=== PATIENT | female | born 1950 | race Caucasian/White ===

== ENCOUNTER 2016-12-12 10:17 | Inpatient (IN) ==
--- NOTE | 2016-12-12 10:37 | Emergency Department Note ---
Disposition Clinical Impression: Congestive heart failure (CHF) Qualifiers: Congestive heart failure type: diastolic Congestive heart failure chronicity: acute on chronic Qualified Code(s): I50.33 - Acute on chronic diastolic ( congestive) heart failure Disposition: Admitted As Inpatient Condition: Good Time of Disposition: 15:44 General Adult HPI - General Chief complaint: ED Shortness of Breath/Dyspnea Stated complaint: HALI, LE swelling Time Seen by Provider: 12/12/16 10:29 Source: patient Mode of arrival: ambulatory Limitations: no limitations Nursing Notes Reviewed: Yes Vital Signs Reviewed: Yes - History of Present Illness HPI Narrative: 66 yo F with PMH CHF, Afib, asthma, htn, hld. with c/o worsening dyspnea. Pt states she has had worsenign dyspnea for past three weeks. Pt states it has been progressively getting worse and is now short of breath with rest and conversation. Pt states that she is now having b/l lower leg swelling which started about one week ago. She sees [facility] and has been using her inhalers as prescribed but has not been improving her symptoms. She states she also follow with cardiology and her PCP for her a fib and CHF, SHe states that about 1-2 weeks ago she was taken off her amlodipine and her metoprolol was increased. Change in medication did not improve her symptoms. SHe states she also does have occasional wheeze. SHe denies cough, hemoptysis, chest pain, syncope, numbness/tingling. Pt Subjective Complaint: SOB Onset (ago): week(s) Location: chest Radiation: non-radiation Pain Scale: 0 Consistency: constant Improves with: nothing Worsens with: movement Associated symptoms: Reports: shortness of breath Treatments Prior to Arrival: other - Related Data Home Medications Medication Instructions Recorded Confirmed Cyanocobalamin (Vitamin B-12) 1,000 mcg PO DAILY 05/31/15 12/12/16 [Vitamin B12] FLUoxetine HCl [Sarafem] 20 mg PO DAILY 05/31/15 12/12/16 Lisinopril/Hydrochlorothiazide 1 tab PO BID 05/31/15 12/12/16 [Zestoretic 20-12.5 mg Tablet] Metoprolol [Lopressor] 100 mg PO BID 05/31/15 12/12/16 Pravastatin Sodium 10 mg PO DAILY 05/31/15 12/12/16 Vitamin D3/Folic Acid [Ortho D 5,000 units PO DAILY 05/31/15 12/12/16 3,775 Unit-1 mg Cap] Albuterol Sulfate [Proair Hfa] 1 puff IH Q4H PRN 10/25/16 12/12/16 Aspirin [Lo-Dose Aspirin EC] 81 mg PO DAILY 10/25/16 12/12/16 Apixaban [Eliquis] 5 mg PO BID 12/12/16 12/12/16 Budesonide/Formoterol 160/4.5 2 puff IH BIDR 12/12/16 12/12/16 [Symbicort 160/4.5] Multivit-Min/Iron/Folic/Lutein 1 tab PO DAILY 12/12/16 12/12/16 [Centrum Silver Women Tablet] [place]-3/Dha/Epa/Fish Oil [Fish Oil 1,000 mg PO DAILY 12/12/16 12/12/16 1,000 mg Softgel] Polyethylene Glycol 3350 17 gm PO DAILY 12/12/16 12/12/16 [Smoothlax] Previous Rx's Medication Instructions Recorded Furosemide [Lasix] 40 mg PO BIDDIURETIC #20 tablet 12/14/16 Potassium Chloride 20 meq PO BIDWM #60 tab.er.prt 12/14/16 Allergies Allergy/AdvReac Type Severity Reaction Status Date / Time doxycycline Allergy Swelling Verified 12/12/16 12:52 of Lip/Tongue/Throat Penicillins Allergy Swelling Verified 12/12/16 12:53 of Lip/Tongue/Throat Sulfa (Sulfonamide Allergy Rash Verified 05/31/15 18:13 Antibiotics) nitrofurantoin AdvReac Itching Verified 12/12/16 12:52 [From Macrobid] Telemetry leads Allergy Itching Uncoded 12/14/16 04:59 All systems ED: reviewed and negative except as stated. Constitutional: Denies: fever, chills, weakness, weight change Eyes: Denies: eye pain, eye discharge, vision change ENT ED: Denies: ear pain, throat pain, dental pain, hearing loss, epistaxis, congestion, dysphagia Cardiovascular: Reports: dyspnea on exertion, edema. Denies: chest pain, palpitations, syncope Respiratory: Reports: dyspnea. Denies: cough, wheezes, hemoptysis, stridor, sputum production Gastrointestinal: Denies: abdominal pain, nausea, vomiting, diarrhea, constipation, hematemesis, melena, hematochezia Genitourinary: Denies: dysuria, frequency, hematuria, discharge Musculoskeletal: Denies: back pain, neck pain, arthralgia, myalgia Integumentary: Denies: rash, abrasion, lesions Neurological: Denies: headache, weakness, numbness, paresthesias, confusion, abnormal gait, vertigo Psychiatric: Denies: anxiety, depression, suicidal thoughts, homicidal thoughts , auditory hallucinations, visual hallucinations Endocrine: Denies: fatigue Hematological/Lymphatic: Denies: easy bleeding, easy bruising Allergic/Immunologic: Denies: facial swelling, urticaria Past Medical History - Past Medical History Attestation: Yes The following information was validated with the patient. Medical history: Reports: asthma, atrial fibrillation, CHF, hyperlipidemia, hypertension Psychiatric history: Reports: no psych history - Social History Smoking Status: Never smoker Smokeless Tobacco Status: No Alcohol use: Reports: none Drug use: Reports: none Physical Exam - General Limitations: no limitations General appearance: alert, in no apparent distress - Head Head exam: atraumatic, normocephalic, normal inspection - Eye Eye exam: Present: normal appearance, PERRL, EOMI - ENT ENT exam: normal exam, normal oropharynx, mucous membranes moist - Neck Neck exam: Present: normal inspection, full ROM, trachea midline - Chest Chest inspection: Present: normal inspection, symmetric chest wall rise. Absent : tenderness - Respiratory Respiratory exam: Present: accessory muscle use (minimal), prolonged expiratory phase, other (conversational dyspnea). Absent: wheezes - Expanded Respiratory Exam Location: rales: Left, Right (mild crackles bibasilar R>L), decreased breath sounds: Left, Right, Upper, Lower (diminished throughout) - Cardiovascular Cardiovascular exam: Present: irregular rhythm - Abdominal Exam Abdominal exam: Present: soft, Non-Tender. Absent: tenderness, distention, guarding, rebound, rigidity - Rectal Exam Rectal exam: Present: deferred - Extremities Exam Extremities exam: Present: normal capillary refill, pedal edema (b/l nonpitting edema). Absent: tenderness, calf tenderness - Back Exam Back exam: Present: normal inspection, full ROM. Absent: tenderness - Neurological Exam Neurological exam: Present: alert, oriented X3, CN II-XII intact - Psychiatric Psychiatric exam: Present: normal affect, normal mood - Skin Skin exam: Present: warm, dry, intact, normal color Course Course Narrative: Pt with dyspnea at rest etiology cardiac vs pulmonic iCXR with R pleural effusion 40 of lasix will likely need admission for CHF exacerbation Vital Signs Temperature 97.9 F 12/12/16 10:22 Pulse Rate 73 12/12/16 10:22 Respiratory Rate 18 12/12/16 10:22 Blood Pressure 157/111 12/12/16 10:22 O2 Sat by Pulse Oximetry 95 12/12/16 10:22 Temperature 98.0 F 12/14/16 11:16 Pulse Rate 82 12/14/16 11:16 Respiratory Rate 16 12/14/16 11:16 Blood Pressure 134/85 12/14/16 11:16 O2 Sat by Pulse Oximetry 96 12/14/16 12:15 Oxygen Delivery Oxygen Delivery Room Air Medical Decision Making - Medical Records Medical records reviewed: Yes I reviewed the patient's medical records. - Lab Data Lab results reviewed: Yes I reviewed the patient's lab results. Result diagrams: 12/14/16 04:23 12/14/16 04:23 Lab Results 12/12/16 12/12/16 12/12/16 Range/Units 10:50 10:50 10:50 WBC 8.1 (4.3-11.1) K/mcL RBC 4.93 (3.82-4.97) M/mcL Hgb 14.2 (11.5-15.4) g/dL Hct 43.5 (35.3-44.9) % MCV 88.2 (83.0-100.0) fL MCH 28.8 (28.0-33.3) pg MCHC 32.6 (31.6-35.5) g/dL RDW 17.1 H (11.5-14.5) % Plt Count 175 (140-400) K/mcL MPV 11.9 (9.4-12.4) fL Immature Gran % 0.2 (0-4) % Seg Neutrophils % 73.7 % Lymphocytes % 14.1 % Monocytes % 7.2 % Eosinophils % 3.8 % Basophils % 1.0 % Neutrophils # 6.0 (1.6-8.9) K/mcL Lymphocytes # 1.2 (0.6-4.6) K/mcL Monocytes # 0.6 (0.0-1.3) K/mcL Eosinophils # 0.3 (0.0-0.6) K/mcL Basophils # 0.1 (0.0-0.2) K/mcL Sodium 141 (136-145) mEq/L Potassium 2.9 L (3.5-4.5) mEq/L Chloride 105 (98-109) mEq/L Carbon Dioxide 25 (19-29) mEq/L BUN 15 (7-20) mg/dL Creatinine 0.87 (0.57-1.11) mg/dL Est GFR ( Amer) > 60 (> 60) Est GFR (Non-Af Amer) > 60 (> 60) BUN/Creatinine Ratio 17 (6-26) Glucose 94 (70-99) mg/dL Calculated Osmolality 293 (280-300) Calcium 9.7 (8.6-10.8) mg/dL Total Bilirubin 2.7 H (0.2-1.2) mg/dL AST 35 H (5-34) Units/L ALT 23 (0-55) Units/L Alkaline Phosphatase 88 (38-126) Units/L Troponin I 0.01 (0-0.03) ng/mL B-Natriuretic Peptide (0-100) pg/mL Serum Total Protein 7.3 (6.0-8.3) g/dL Albumin 4.1 (3.5-5.0) g/dL Globulin 3.2 (2.4-3.5) g/dL Albumin/Globulin Ratio 1.3 (1.1-2.2) 12/12/16 12/12/16 Range/Units 10:50 12:23 WBC (4.3-11.1) K/mcL RBC (3.82-4.97) M/mcL Hgb (11.5-15.4) g/dL Hct (35.3-44.9) % MCV (83.0-100.0) fL MCH (28.0-33.3) pg MCHC (31.6-35.5) g/dL RDW (11.5-14.5) % Plt Count (140-400) K/mcL MPV (9.4-12.4) fL Immature Gran % (0-4) % Seg Neutrophils % % Lymphocytes % % Monocytes % % Eosinophils % % Basophils % % Neutrophils # (1.6-8.9) K/mcL Lymphocytes # (0.6-4.6) K/mcL Monocytes # (0.0-1.3) K/mcL Eosinophils # (0.0-0.6) K/mcL Basophils # (0.0-0.2) K/mcL Sodium (136-145) mEq/L Potassium (3.5-4.5) mEq/L Chloride (98-109) mEq/L Carbon Dioxide (19-29) mEq/L BUN (7-20) mg/dL Creatinine (0.57-1.11) mg/dL Est GFR ( Amer) (> 60) Est GFR (Non-Af Amer) (> 60) BUN/Creatinine Ratio (6-26) Glucose (70-99) mg/dL Calculated Osmolality (280-300) Calcium (8.6-10.8) mg/dL Total Bilirubin (0.2-1.2) mg/dL AST (5-34) Units/L ALT (0-55) Units/L Alkaline Phosphatase (38-126) Units/L Troponin I 0.01 (0-0.03) ng/mL B-Natriuretic Peptide 766 H (0-100) pg/mL Serum Total Protein (6.0-8.3) g/dL Albumin (3.5-5.0) g/dL Globulin (2.4-3.5) g/dL Albumin/Globulin Ratio (1.1-2.2) - Radiology Data Radiology results reviewed: Yes I reviewed the patient's radiology results. - EKG Data EKG #1 EKG attestation: Yes I reviewed and interpreted this EKG. Rhythm: A.Fib When compared to previous EKG there are: no significant changes Interpretation: no acute changes (from 10/25) - Core Measures AMI Core Measures Followed: Yes
[2016-12-12] MEDS ORDERED: Furosemide 40 MG/4 ML VIAL IVP ONE (11:08)
[2016-12-12 11:16] LABS: Basophils # 0.1 K/mcL (0.0-0.2); Eosinophils # 0.3 K/mcL (0.0-0.6); Eosinophils % 3.8 %; Hematocrit 43.5 % (35.3-44.9); Hemoglobin 14.2 g/dL (11.5-15.4); Immature Granulocytes % 0.2 % (0-4); Lymphocytes # 1.2 K/mcL (0.6-4.6); Lymphocytes % 14.1 %; Mean Corpuscular HGB Conc 32.6 g/dL (31.6-35.5); Mean Corpuscular Hemoglobin 28.8 pg (28.0-33.3); Mean Corpuscular Volume 88.2 fL (83.0-100.0); Mean Platelet Volume 11.9 fL (9.4-12.4); Monocytes # 0.6 K/mcL (0.0-1.3); Monocytes % 7.2 %; Platelet Count 175 K/mcL (140-400); Red Blood Count 4.93 M/mcL (3.82-4.97); Red Cell Distribution Width 17.1 % (11.5-14.5); Segmented Neutrophils % 73.7 %
[2016-12-12 11:28] LABS: Alanine Aminotransferase 23 Units/L (0-55); Albumin 4.1 g/dL (3.5-5.0); Albumin/Globulin Ratio 1.3 (1.1-2.2); Alkaline Phosphatase 88 Units/L (38-126); Aspartate Amino Transferase 35 Units/L (5-34); BUN/Creatinine Ratio 17 (6-26); Bilirubin,Total 2.7 mg/dL (0.2-1.2); Blood Urea Nitrogen 15 mg/dL (7-20); Calcium 9.7 mg/dL (8.6-10.8); Carbon Dioxide 25 mEq/L (19-29); Chloride 105 mEq/L (98-109); Globulin 3.2 g/dL (2.4-3.5); Glucose 94 mg/dL (70-99); Osmolality,Calculated 293 (280-300); Potassium 2.9 mEq/L (3.5-4.5); Sodium 141 mEq/L (136-145); Total Protein 7.3 g/dL (6.0-8.3); eGFR For African Americans > 60 (> 60); eGFR For Non-African Americans > 60 (> 60)
--- NOTE | 2016-12-12 11:49 | Internal Med History&Physical ---
Date of Encounter: 12/12/16 Time of Encounter: 11:49 Assessment and Plan (1) Congestive heart failure (CHF) Current visit: Yes Status: Acute Congestive heart failure: Clinically this is a congestive heart failure as patient has elevated JVP, presence of a third heart sound, pedal edema and unable to lay down flat along with right-sided pleural effusion. Noted that patient also gained more than 10 pounds and she does not have any control on a fluid restriction. Patient has echocardiogram done in less than 6 months which showed ejection fraction more than 50%. Plan Admit patient as an inpatient. Intravenous Lasix 40 mg twice a day. Replacement of potassium. Recheck labs in the morning. We will cycle the troponin. In the troponin is positive or patient's intermittent fibrillation gets worse then we will get a cardiology opinion tomorrow I have discussed this plan with the patient and patient's was present in the room at the bedside. They do not have any question at this point. Qualifiers: Congestive heart failure type: diastolic Congestive heart failure chronicity: unspecified congestive heart failure chronicity Qualified Code(s) : I50.30 - Unspecified diastolic (congestive) heart failure (2) Bronchial asthma Current visit: Yes Status: Acute Patient was evaluated by pulmonology. Pulmonology noted that patient has a worsening shortness of breath along with weight gain. Pulmonology send this patient to emergency room for further evaluation. We will resume home medications. I have discussed this case with the pulmonology and he agreed with the plan. Pulmonology was consulted regarding the underlying heart issue and prefer that to be investigated further. Qualifiers: Asthma severity: unspecified severity Asthma complication type: uncomplicated Qualified Code(s): J45.909 - Unspecified asthma, uncomplicated (3) Atrial fibrillation Current visit: Yes Status: Acute Patient is a chronic atrial fibrillation. Heart rate is 82-84. Anticoagulation: Elliquis Qualifiers: Atrial fibrillation type: chronic Qualified Code(s): I48.2 - Chronic atrial fibrillation (4) Obesity Current visit: Yes Status: Acute May need outpatient evaluation for bariatric surgery. Qualifiers: Obesity type: unspecified obesity type Obesity severity: unspecified obesity severity Qualified Code(s): E66.9 - Obesity, unspecified (5) DVT prophylaxis Current visit: Yes Status: Acute Elliquis Medical decision making: This patient has multiple risk factors for worsening of his cardiac perfusion. This patient has a [id number] risk of worsening heart failure in spite of being on appropriate treatment. Internal Medicine - H&P: HPI Chief complaint: sob Admitted From: Emergency Dept Plans for Post Hospital Care: Home History of present illness: PCP: Dr. Arpit Mckoy. Cardiology: Dr. Somers Brief past medical history: Hypertension, atrial fibrillation, bronchial asthma History of present illness: Patient has ongoing shortness of breath for more than 2 months. In last 1 week patient's shortness of breath was gradually worsened. Patient was previously evaluated by cardiology and it seems that as per patient, this shortness of breath is likely secondary to her lung problem. This morning patient was evaluated by pulmonology. Pulmonology evaluated this patient, noted that patient has a gain of more than 10 pounds. Patient was unable to lay down flat. Patient has a pedal edema. Patient was persistently short of breath and was able to speak complete sentences with the great difficulty. Patient denies chest pain, palpitation, dizziness, abdominal pain, nausea, vomiting or diarrhea. Patient was sent to the emergency room from the pulmonology office. Course in the emergency room: Patient was evaluated in the emergency room. Noted that patient's potassium was 2.9. Chest x-ray was suggestive of a right- sided pleural effusion. Patient was given intravenous Lasix. Reason for admission: This is likely an exacerbation of her underlying congestive heart failure. Noted that patient has an echocardiogram done 2 months back which is suggestive of ejection fraction more than 50%. Patient needs intravenous diuretics along with the monitoring of the electrolytes and that is the reason patient needs to be hospitalized for further evaluation which cannot be done at the home setting. Family history: Noncontributory Past Med Surg Social Fam HX - Past Medical History Medical history: asthma, atrial fibrillation, CHF, hyperlipidemia, hypertension Psychiatric history: no psych history - Social History Smoking Status: Never smoker Smokeless Tobacco Status: No Alcohol use: none Drug use: none Internal Medicine - H&P: Meds Amlodipine [Amlodipine Besylate] 10 mg PO DAILY 05/31/15 [History] Cyanocobalamin (Vitamin B-12) [Vitamin B-12] 1,000 mcg PO DAILY 05/31/15 [ History] FLUoxetine HCl [Sarafem] 20 mg PO DAILY 05/31/15 [History] Lisinopril/Hydrochlorothiazide [Zestoretic 20-12.5 mg Tablet] 1 tab PO BID 05/31 [History] Metoprolol [Lopressor] 100 mg PO BID 05/31/15 [History] Pravastatin Sodium 10 mg PO DAILY 05/31/15 [History] Vitamin D3/Folic Acid [Ortho D 3,775 Unit-1 mg Cap] 5,000 units PO DAILY [History] Albuterol Sulfate [Proair Hfa] 1 puff IH Q4H PRN 10/25/16 [History] Aspirin [Lo-Dose Aspirin EC] 81 mg PO DAILY 10/25/16 [History] Apixaban [Eliquis] 5 mg PO BID 12/12/16 [History] Budesonide/Formoterol 160/4.5 [Symbicort 160/4.5] 2 puff IH BIDR 12/12/16 [ History] Multivit-Min/Iron/Folic/Lutein [Centrum Silver Women Tablet] 1 tab PO DAILY [History] [place]-3/Dha/Epa/Fish Oil [Fish Oil 1,000 mg Softgel] 1,000 mg PO DAILY 12/12/16 [History] Polyethylene Glycol 3350 [Smoothlax] 17 gm PO DAILY 12/12/16 [History] Allergies doxycycline Allergy (Verified 12/12/16 12:52) Swelling of Lip/Tongue/Throat Penicillins Allergy (Verified 12/12/16 12:53) Swelling of Lip/Tongue/Throat Sulfa (Sulfonamide Antibiotics) Allergy (Verified 05/31/15 18:13) Rash nitrofurantoin [From Macrobid] Adverse Reaction (Verified 12/12/16 12:52) Itching All Systems PM: A 10-system review of systems was performed and is negative for pertinent findings except as documented above in the HPI. - Constitutional Constitutional: no chills, no fever(s), no night sweats - EENT Eyes: no change in vision, no discharge, no pain, no photophobia Ears: no ear discharge, no ear pain, no tinnitus Nose, mouth and throat: no dysphagia, no nasal discharge, no neck pain, no sore throat - Cardiovascular Cardiovascular ROS IM: no chest pain, no diaphoresis, no dyspnea, no lightheadedness, no palpitations, no syncope - Respiratory Respiratory: no cough, no dyspnea, no wheezing, no excessive phlegm production - Gastrointestinal Gastrointestinal: no abdominal pain, no diarrhea, no hematemesis, no hematochezia, no melena, no nausea, no vomiting - Genitourinary Genitourinary: no change in urinary stream, no dysuria, no flank pain, no hematuria - Musculoskeletal Musculoskeletal ROS IM: no numbness, no tingling - Integumentary Integumentary IM: no rash, no unusual bruising - Neurological Neurological ROS: no confusion, no convulsions, no focal weakness, no numbness, no tingling, no tremor(s) - Hematologic/Lymphatic Hematologic/Lymphatic: no easy bruising - Constitutional Vitals: Temp Pulse Resp BP Pulse Ox 97.9 F 73 18 157/111 98 12/12/16 10:22 12/12/16 10:22 12/12/16 10:22 12/12/16 10:22 12/12/16 10:41 General appearance: Present: A&O X 3, pleasant, no acute distress, answers questions appropriately - Head Head exam: Present: atraumatic, normocephalic - Eye Eye exam: Present: PERRL, conjuntiva pink, sclera anicteric Pupils: Present: PERRL - Neck Neck exam general surgery: Present: supple, trachea midline. Absent: lymphadenopathy - Respiratory Respiratory exam: Present: CTAB. Absent: accessory muscle use, rales, rhonchi, wheezes - Cardiovascular Cardiovascular exam: Present: RRR, +S1, +S2. Absent: diastolic murmur, gallop, rubs, systolic murmur Additional comments: Elevated JVP. - GI/Abdominal GI/Abdominal exam: Present: normal bowel sounds, soft, no peritoneal signs. Absent: distended, tenderness - Extremities Exam Extremities exam: Present: warm, radial pulses palpable and symetrical. Absent : calf tenderness, cyanotic, pedal edema - Neurological Exam Neurological exam: Present: CN II-XII intact, oriented X3, no focal deficits. Absent: pronater drift, facial droop, speech deficit - Skin Skin exam: Present: dry, intact Internal Med - H&P Results - Labs CBC & Chem 7: 12/12/16 10:50 12/12/16 10:50 Labs: Short CBC 12/12/16 Range/Units 10:50 WBC 8.1 (4.3-11.1) K/mcL Hgb 14.2 (11.5-15.4) g/dL Hct 43.5 (35.3-44.9) % Plt Count 175 (140-400) K/mcL Neutrophils # 6.0 (1.6-8.9) K/mcL BMP 12/12/16 10:50 Sodium 141 Potassium 2.9 L Chloride 105 Carbon Dioxide 25 BUN 15 Creatinine 0.87 Glucose 94 Calcium 9.7 Cardiac Enzymes 12/12/16 Range/Units 10:50 Troponin I 0.01 (0-0.03) ng/mL Liver Function 12/12/16 Range/Units 10:50 Total Bilirubin 2.7 H (0.2-1.2) mg/dL AST 35 H (5-34) Units/L ALT 23 (0-55) Units/L Alkaline Phosphatase 88 (38-126) Units/L Albumin 4.1 (3.5-5.0) g/dL I will discuss his results with the emergency room physician. - Impressions ITS Impressions Chest X-Ray 12/12/16 10:29 IMPRESSION: New moderate to large right pleural effusion with adjacent compressive atelectasis. Underlying pneumonia or less likely neoplasm cannot be excluded and follow-up to ensure resolution is recommended. D/ / Nicolás Du MD / Nicolás Du MD Interpreting Provider: Nicolás Du MD
[2016-12-12] MEDS ORDERED: Acetaminophen 325 MG TABLET PO PRN (11:50)
[2016-12-12] MEDS ORDERED: Naloxone 0.4 MG/ML INJ IVP PRN (11:50)
[2016-12-12] MEDS: *HR* Heparin 5,000 UNIT/ML VIAL SQ SCH (16:58)
[2016-12-12] MEDS: Furosemide 40 MG TABLET PO SCH (16:58)
[2016-12-12] MEDS: APIXABAN 5 MG TABLET PO SCH (20:21)
[2016-12-12] MEDS: Lisinopril-HCTZ 20-12.5mg TABLET PO SCH (20:21)
[2016-12-12] MEDS: Budesonide/Formoterol 160/4.5 MDI IH SCH (21:33)
[2016-12-12] MEDS: Budesonide/Formoterol 80/4.5 MDI IH SCH (21:41)
[2016-12-13 00:52] LABS: Basophils # 0.1 K/mcL (0.0-0.2); Eosinophils # 0.5 K/mcL (0.0-0.6); Eosinophils % 5.5 %; Hematocrit 42.9 % (35.3-44.9); Hemoglobin 14.1 g/dL (11.5-15.4); Immature Granulocytes % 0.2 % (0-4); Lymphocytes # 1.3 K/mcL (0.6-4.6); Lymphocytes % 16.5 %; Mean Corpuscular HGB Conc 32.9 g/dL (31.6-35.5); Mean Corpuscular Hemoglobin 29.3 pg (28.0-33.3); Mean Corpuscular Volume 89.2 fL (83.0-100.0); Mean Platelet Volume 12.2 fL (9.4-12.4); Monocytes # 0.6 K/mcL (0.0-1.3); Monocytes % 7.9 %; Neutrophils # 5.6 K/mcL (1.6-8.9); Platelet Count 170 K/mcL (140-400); Red Blood Count 4.81 M/mcL (3.82-4.97); Red Cell Distribution Width 17.3 % (11.5-14.5); Segmented Neutrophils % 68.9 %
[2016-12-13 01:01] LABS: Alanine Aminotransferase 24 Units/L (0-55); Albumin 4.2 g/dL (3.5-5.0); Albumin/Globulin Ratio 1.2 (1.1-2.2); Alkaline Phosphatase 83 Units/L (38-126); Aspartate Amino Transferase 37 Units/L (5-34); BUN/Creatinine Ratio 15 (6-26); Bilirubin,Total 2.3 mg/dL (0.2-1.2); Blood Urea Nitrogen 15 mg/dL (7-20); Calcium 9.8 mg/dL (8.6-10.8); Carbon Dioxide 26 mEq/L (19-29); Chloride 101 mEq/L (98-109); Chol/HDL Ratio 4.2 (0-4.9); Cholesterol 110 mg/dL (< 200); Globulin 3.5 g/dL (2.4-3.5); Glucose 94 mg/dL (70-99); HDL Cholesterol 26 mg/dL (40-59); LDL Cholesterol,Calculated 67 mg/dL (0-99); Osmolality,Calculated 289 (280-300); Phosphorous 3.6 mg/dL (2.3-4.7); Potassium 3.1 mEq/L (3.5-4.5); Sodium 139 mEq/L (136-145); Total Protein 7.7 g/dL (6.0-8.3); Triglycerides 86 mg/dL (< 150); eGFR For African Americans > 60 (> 60); eGFR For Non-African Americans 56 (> 60)
[2016-12-13] MEDS: *HR* Heparin 5,000 UNIT/ML VIAL SQ SCH ×2 (06:00→17:18)
[2016-12-13] MEDS: FLUoxetine 20 MG CAPSULE PO SCH (08:28)
[2016-12-13] MEDS: Lisinopril-HCTZ 20-12.5mg TABLET PO SCH ×2 (08:28→21:53)
[2016-12-13] MEDS: amLODIPine 5 MG TABLET PO SCH (08:28)
[2016-12-13] MEDS: Furosemide 40 MG TABLET PO SCH ×2 (08:28→17:18)
[2016-12-13] MEDS: Aspirin Enteric Coated 81 MG Tablet PO SCH (08:28)
[2016-12-13] MEDS: APIXABAN 5 MG TABLET PO SCH ×2 (08:29→22:01)
[2016-12-13] MEDS ORDERED: Potassium Chloride Elixir 20 MEQ/15 ML UDC PO ONE (09:15)
[2016-12-13] MEDS: Budesonide/Formoterol 160/4.5 MDI IH SCH ×2 (10:34→21:12)
[2016-12-13] MEDS: Budesonide/Formoterol 80/4.5 MDI IH SCH (10:48)
--- NOTE | 2016-12-13 15:50 | Internal Med Progress Note ---
Date of Encounter: 12/13/16 Time of Encounter: 15:47 - Assessment and plan (1) Pleural effusion Status: Acute Assessment and plan: Chest x-ray suggestive of right-sided pleural effusion, likely due to underlying acute CHF. Continue Lasix and supplemental oxygen. (2) Congestive heart failure (CHF) Status: Acute Assessment and plan: Patient presents with weight gain, pedal edema, hypoxia and exertional dyspnea. Recent echocardiogram in September 2016 shows preserved EF with diastolic dysfunction, moderate TR and possible pulmonary hypertension. Patient is currently improving slowly, noted to have significant urine output with oral Lasix as she has not been on chronic Lasix therapy. Continue Lasix, start fluid restriction and strict urine output monitoring, beta lizeth. Continue supplemental oxygen, wean down FiO2 as tolerated and supportive care. Qualifiers: Congestive heart failure type: diastolic Congestive heart failure chronicity: acute on chronic Qualified Code(s): I50.33 - Acute on chronic diastolic (congestive) heart failure (3) Bronchial asthma Status: Chronic Assessment and plan: Patient follows with pulmonology as an outpatient, unclear diagnosis of mild COPD worsens asthma. CT chest from August 2016 reviewed, shows no evidence of interstitial lung disease, mild age trapping suggestive of possible COPD. Continue supplemental oxygen, bronchodilators when necessary and Symbicort. Qualifiers: Asthma severity: unspecified severity Asthma complication type: uncomplicated Qualified Code(s): J45.909 - Unspecified asthma, uncomplicated (4) Atrial fibrillation Status: Chronic Assessment and plan: Currently rate controlled. Continue beta lizeth. Continue long-term anticoagulation with Eliquis. Plan for outpatient cardioversion per patient. Qualifiers: Atrial fibrillation type: paroxysmal Qualified Code(s): I48.0 - Paroxysmal atrial fibrillation (5) Obesity Status: Chronic Qualifiers: Obesity type: due to excess calories Obesity severity: non-morbid Qualified Code(s): E66.09 - Other obesity due to excess calories (6) PEG (obstructive sleep apnea) Status: Chronic - Subjective Interval history: Feels better; improving shortness of breath and leg swelling; has significant urine output; requiring small amount of O2; - Constitutional Vitals: Temp Pulse Resp BP Pulse Ox 97.1 F L 79 15 127/88 96 12/13/16 15:44 12/13/16 15:44 12/13/16 15:44 12/13/16 15:44 12/13/16 15:44 General appearance: Present: A&O X 3, obese, answers questions appropriately - Respiratory Respiratory exam: Present: decreased breath sounds (at right base), CTAB. Absent: accessory muscle use, rales, rhonchi, wheezes - Cardiovascular Cardiovascular exam: Present: irregular rhythm, +S1, +S2. Absent: diastolic murmur, gallop, rubs, systolic murmur - GI/Abdominal GI/Abdominal exam: Present: normal bowel sounds, soft (obese), no peritoneal signs. Absent: distended, tenderness - Extremities Exam Extremities exam: Present: full ROM, pedal edema (2+ pitting pedal edema B/L), warm, radial pulses palpable and symetrical. Absent: calf tenderness, cyanotic - Neurological Exam Neurological exam: Present: CN II-XII intact, oriented X3, no focal deficits. Absent: pronater drift, facial droop, speech deficit Internal Medicine: Result - Labs CBC & Chem 7: 12/14/16 04:23 12/14/16 04:23 Labs: Short CBC 12/13/16 Range/Units 00:26 WBC 8.1 (4.3-11.1) K/mcL Hgb 14.1 (11.5-15.4) g/dL Hct 42.9 (35.3-44.9) % Plt Count 170 (140-400) K/mcL Neutrophils # 5.6 (1.6-8.9) K/mcL BMP 12/13/16 00:26 Sodium 139 Potassium 3.1 L Chloride 101 Carbon Dioxide 26 BUN 15 Creatinine 0.99 Glucose 94 Calcium 9.8 Cardiac Enzymes 12/12/16 12/13/16 Range/Units 18:28 00:26 Troponin I 0.00 0.00 (0-0.03) ng/mL Liver Function 12/13/16 Range/Units 00:26 Total Bilirubin 2.3 H (0.2-1.2) mg/dL AST 37 H (5-34) Units/L ALT 24 (0-55) Units/L Alkaline Phosphatase 83 (38-126) Units/L Albumin 4.2 (3.5-5.0) g/dL Consult Discharge Plan - Plan Additional Instructions: F/up with [facility] in 1-2 weeks F/up with [facility] as scheduled Referrals: Arpit Mckoy MD [Primary Care Provider] - 12/20/16 11:30 am Prescriptions: Furosemide [Lasix] 40 mg PO BIDDIURETIC #20 tablet Potassium Chloride 20 meq PO BIDWM #60 tab.er.prt
--- NOTE | 2016-12-13 22:30 | Electrocardiograph Report ---
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
[2016-12-14 05:00] LABS: Basophils # 0.1 K/mcL (0.0-0.2); Basophils % 0.8 %; Eosinophils # 0.5 K/mcL (0.0-0.6); Eosinophils % 6.6 %; Hematocrit 44.1 % (35.3-44.9); Hemoglobin 14.3 g/dL (11.5-15.4); Immature Granulocytes % 0.3 % (0-4); Lymphocytes # 1.4 K/mcL (0.6-4.6); Lymphocytes % 18.6 %; Mean Corpuscular HGB Conc 32.4 g/dL (31.6-35.5); Mean Corpuscular Hemoglobin 28.5 pg (28.0-33.3); Mean Corpuscular Volume 87.8 fL (83.0-100.0); Mean Platelet Volume 12.2 fL (9.4-12.4); Monocytes # 0.6 K/mcL (0.0-1.3); Monocytes % 8.1 %; Platelet Count 176 K/mcL (140-400); Red Blood Count 5.02 M/mcL (3.82-4.97); Segmented Neutrophils % 65.6 %
[2016-12-14] MEDS: *HR* Heparin 5,000 UNIT/ML VIAL SQ SCH (05:19)
[2016-12-14 05:20] LABS: Alanine Aminotransferase 23 Units/L (0-55); Albumin 4.1 g/dL (3.5-5.0); Albumin/Globulin Ratio 1.2 (1.1-2.2); Alkaline Phosphatase 87 Units/L (38-126); Aspartate Amino Transferase 37 Units/L (5-34); BUN/Creatinine Ratio 17 (6-26); Blood Urea Nitrogen 16 mg/dL (7-20); Carbon Dioxide 29 mEq/L (19-29); Chloride 99 mEq/L (98-109); Globulin 3.4 g/dL (2.4-3.5); Glucose 92 mg/dL (70-99); Magnesium 1.7 mg/dL (1.6-2.6); Osmolality,Calculated 289 (280-300); Sodium 139 mEq/L (136-145); Total Protein 7.5 g/dL (6.0-8.3); eGFR For African Americans > 60 (> 60); eGFR For Non-African Americans 58 (> 60)
[2016-12-14 05:32] LABS: Bilirubin,Total 2.7 mg/dL (0.2-1.2)
[2016-12-14] MEDS: Budesonide/Formoterol 160/4.5 MDI IH SCH (08:18)
[2016-12-14] MEDS: FLUoxetine 20 MG CAPSULE PO SCH (09:29)
[2016-12-14] MEDS: APIXABAN 5 MG TABLET PO SCH (09:30)
[2016-12-14] MEDS: Aspirin Enteric Coated 81 MG Tablet PO SCH (09:30)
[2016-12-14] MEDS: Furosemide 40 MG TABLET PO SCH (09:30)
[2016-12-14] MEDS: Lisinopril-HCTZ 20-12.5mg TABLET PO SCH (09:30)
[2016-12-14] MEDS: amLODIPine 5 MG TABLET PO SCH (09:30)
[2016-12-14 11:17] VITALS: BP 134/85
--- NOTE | 2016-12-14 13:23 | Discharge Summary ---
Date of Encounter: 12/14/16 Time of Encounter: 13:21 - Discharge Diagnosis (1) Congestive heart failure (CHF) Priority: Primary Status: Acute Qualifiers: Congestive heart failure type: diastolic Congestive heart failure chronicity: acute on chronic Qualified Code(s): I50.33 - Acute on chronic diastolic (congestive) heart failure (2) Atrial fibrillation Priority: Secondary Status: Chronic Qualifiers: Atrial fibrillation type: paroxysmal Qualified Code(s): I48.0 - Paroxysmal atrial fibrillation (3) PEG (obstructive sleep apnea) Priority: Secondary Status: Chronic (4) Obesity Priority: Secondary Status: Chronic Qualifiers: Obesity type: due to excess calories Obesity severity: non-morbid Qualified Code(s): E66.09 - Other obesity due to excess calories - Discharge Medications Prescriptions: Furosemide [Lasix] 40 mg PO BIDDIURETIC #20 tablet Potassium Chloride 20 meq PO BIDWM #60 tab.er.prt Home Medications: Cyanocobalamin (Vitamin B-12) [Vitamin B12] 1,000 mcg PO DAILY 05/31/15 [History ] FLUoxetine HCl [Sarafem] 20 mg PO DAILY 05/31/15 [History] Lisinopril/Hydrochlorothiazide [Zestoretic 20-12.5 mg Tablet] 1 tab PO BID 05/31 [History] Metoprolol [Lopressor] 100 mg PO BID 05/31/15 [History] Pravastatin Sodium 10 mg PO DAILY 05/31/15 [History] Vitamin D3/Folic Acid [Ortho D 3,775 Unit-1 mg Cap] 5,000 units PO DAILY [History] Albuterol Sulfate [Proair Hfa] 1 puff IH Q4H PRN 10/25/16 [History] Aspirin [Lo-Dose Aspirin EC] 81 mg PO DAILY 10/25/16 [History] Apixaban [Eliquis] 5 mg PO BID 12/12/16 [History] Budesonide/Formoterol 160/4.5 [Symbicort 160/4.5] 2 puff IH BIDR 12/12/16 [ History] Multivit-Min/Iron/Folic/Lutein [Centrum Silver Women Tablet] 1 tab PO DAILY [History] [place]-3/Dha/Epa/Fish Oil [Fish Oil 1,000 mg Softgel] 1,000 mg PO DAILY 12/12/16 [History] Polyethylene Glycol 3350 [Smoothlax] 17 gm PO DAILY 12/12/16 [History] Furosemide [Lasix] 40 mg PO BIDDIURETIC #20 tablet 12/14/16 [Rx] Potassium Chloride 20 meq PO BIDWM #60 tab.er.prt 12/14/16 [Rx] Allergies/Adverse Reactions: Allergies doxycycline Allergy (Verified 12/12/16 12:52) Swelling of Lip/Tongue/Throat Penicillins Allergy (Verified 12/12/16 12:53) Swelling of Lip/Tongue/Throat Sulfa (Sulfonamide Antibiotics) Allergy (Verified 05/31/15 18:13) Rash nitrofurantoin [From Macrobid] Adverse Reaction (Verified 12/12/16 12:52) Itching Telemetry leads Allergy (Uncoded 12/14/16 04:59) Itching Date of admission: 12/12/16 12:37 Primary care physician: Arpit Mckoy MD Discharging clinician: Caty Porter Anticipated date of discharge: 12/14/16 - Patient Status Disposition: Home, Self-Care Condition: Good Functional capacity at discharge: independent ambulation Overall status at discharge: patient is progressing back to baseline - Discharge Instructions Follow Up With: Arpit Mckoy MD [Primary Care Provider] - 12/20/16 11:30 am Forms: ED Satisfaction Letter Additional Instructions: F/up with [facility] in 1-2 weeks F/up with [facility] as scheduled - Diet and Activity Activity: resume usual activities as tolerated Diet: low fat, low cholesterol, low salt diet (fluid restriction to 1.2L/day) Hospital course: Ms. Cervantes is a 66 year old female with the above medical problems was admitted with worsening shortness of breath and leg swelling. She was also noted to have hypoxia on room age at the time of admission. She had a recent echocardiogram done in September 2016 which showed preserved ejection fraction with left ventricle diastolic dysfunction and possible pulmonary hypertension. She is naive to diuretic treatment and has been started on oral Lasix 40 mg twice daily with significant improvement in her symptoms along with appropriate urine output. She is breathing better today and no longer requires supplemental oxygen and also past 6 minute walk test and does not require home oxygen at this time. She follows with pulmonology for possible chronic lung disease, COPD versus asthma. CT chest from August 2016 showed no interstitial lung disease except mild air trapping. This has been explained to her and she is encouraged to follow up with pulmonology as outpatient. She is medically stable for discharge. - Time Spent with Patient Total time spent providing and/or coordinating discharge services: Greater than 30 minutes (50 min) - Constitutional Vitals: Temp Pulse Resp BP Pulse Ox 98.0 F 82 16 134/85 96 12/14/16 11:16 12/14/16 11:16 12/14/16 11:16 12/14/16 11:12/14/16 12:15 General appearance: Present: A&O X 3, obese, answers questions appropriately - Respiratory Respiratory exam: Present: CTAB. Absent: accessory muscle use, rales, rhonchi, wheezes - Cardiovascular Cardiovascular exam: Present: irregular rhythm, +S1, +S2. Absent: diastolic murmur, gallop, rubs, systolic murmur
== END 2016-12-14 13:59 | disposition home or self-care (01) | DRG 293 ==
LOC: EMEROO 10:17 → SUATTDRO 12:37 → 3NENU 12:37 → 3BNU 12:39
PROVIDERS: ADMIT Orthopaedic Surgery; ATTEND Internal Medicine